=== PATIENT | male | born 1970 | race Caucasian/White ===

== ENCOUNTER 2017-12-29 04:12 | Emergency (ER) | payer SELFPAY, OTHER ==
[2017-12-29] MEDS: ETOMIDATE 20 MG/10 ML VIAL. IV ×2 (04:24→04:38)
[2017-12-29] MEDS: SUCCINYLCHOLINE 200 MG/10 ML VIAL. IV (04:25)
[2017-12-29] MEDS ORDERED: DIPHTH,PERTUSS(ACELL),TET TOX 0.5 ML DISP.SYRIN. VAX IM (04:27)
[2017-12-29] MEDS ORDERED: PROPOFOL 50 ML IV (04:27)
[2017-12-29] MEDS: IV NORMAL SALINE 1000ML BAG 1,000 ML IV ×2 (04:34→04:43)
[2017-12-29] MEDS: PROPOFOL 10 MG/ML (20ML) VIAL. IV (04:37)
[2017-12-29] MEDS ORDERED: ETOMIDATE 20 MG/10 ML VIAL. IV ×3 (04:39→05:12)
[2017-12-29] MEDS: ROCURONIUM 100 MG/10 ML VIAL. IV (04:44)
[2017-12-29] MEDS ORDERED: SUCCINYLCHOLINE 200 MG/10 ML VIAL. (05:09)
[2017-12-29] MEDS ORDERED: MIDAZOLAM HCL/PF 5 MG/5 ML VIAL. (05:09)
[2017-12-29] MEDS ORDERED: ROCURONIUM 50 MG/5 ML VIAL. (05:10)
== END 2017-12-29 04:44 | disposition short-term general hospital (02) ==
LOC: ER 04:12
DX: S11.91XA Laceration without foreign body of unspecified part of neck, initial encounter (principal); W18.02XA Striking against glass with subsequent fall, initial encounter; Y93.89 Activity, other specified; Y99.8 Other external cause status; Y92.89 Other specified places as the place of occurrence of the external cause
CPT/HCPCS: 31500; 43752; 96361; 96374; 99291-25; J0330; J2704; J7030

== ENCOUNTER 2017-12-31 10:37 | Emergency (ER) | payer SELFPAY ==
[2017-12-31 11:14] LABS: ADD MAN DIFF? NO
[2017-12-31 11:25] LABS: BASO % 1 % (0-3); EOS % 1 % (0-3); HEMATOCRIT 35.1 % (39.0-53.0); HEMOGLOBIN 11.6 g/dL (13.0-17.5); LYMPH % 25 % (24-48); MEAN CORPUSCULAR HEMOGLOBIN 30 pg (25-35); MEAN CORPUSCULAR HGB CONC 33 g/dL (31-37); MEAN CORPUSCULAR VOLUME 92 fL (79-100); MONO # 0.9 x10^3/uL (0.0-1.1); MONO % 11 % (0-9); NEUT # 5.2 x10^3uL (1.8-7.7); NEUT % 64 % (31-73); PLATELET COUNT 199 x10^3/uL (140-400); RED BLOOD COUNT 3.82 x10^6/uL (4.30-5.70); RED CELL DISTRIBUTION WIDTH 13.4 % (11.5-14.5); WHITE BLOOD COUNT 8.1 x10^3/uL (4.0-11.0)
[2017-12-31 11:27] LABS: ANION GAP -2 (6-14); BLOOD UREA NITROGEN 19 mg/dL (8-26); CALCIUM 7.9 mg/dL (8.5-10.1); CARBON DIOXIDE 35 mmol/L (21-32); CHLORIDE 106 mmol/L (98-107); CREATININE 0.9 mg/dL (0.7-1.3); GFR 91.3; GLUCOSE 90 mg/dL (70-99); POTASSIUM 3.6 mmol/L (3.5-5.1); SODIUM 139 mmol/L (136-145)
== END 2017-12-31 12:40 | disposition short-term general hospital (02) ==
LOC: ER 10:37
DX: R06.02 Shortness of breath (principal); R05 Cough
CPT/HCPCS: 36415; 71045; 80048; 85025; 99285-25

== ENCOUNTER → 2018-07-05 | Outpatient (CLI) | payer OTHER ==
[2017-12-31 12:18] VITALS: BP 89/53
--- NOTE | 2018-07-05 14:24 | KCIC ---
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 Comparison: None available. Findings/ impression: No evidence of metallic radiopaque density identified in the bilateral orbital region. Electronically signed by: Timo Peralta MD (07/05/2018 2:20 PM) [facility]
--- NOTE | 2018-07-05 15:24 | KCIC ---
Examination: MRI left shoulder without contrast HISTORY: History of left shoulder pain COMPARISON: None available TECHNIQUE: Multiplanar, multisequence MR imaging of the left shoulder were performed without contrast. FINDINGS: The long head of the biceps tendon is within the bicipital groove. The attachment of the long head of the biceps tendon to the superior labral anchor grossly appears intact. The attachment of the subscapularis tendon appears intact. There is a tiny 3 mm increased T2 signal identified in the undersurface fibers of the supraspinatus tendon likely a tiny undersurface partial tear. There is tendinosis of the supraspinous, infraspinatus tendon. There is questionable mild increased T2 signal identified in the infraspinatus muscle. Minimal amount of fluid identified in the subacromial bursa. Moderate degenerative changes acromioclavicular joint. The inferior aspect of the acromion abuts the superior aspect of the supraspinatus tendon. The muscle bulk grossly appears unremarkable Minimal fatty atrophic changes of the infraspinatus and teres minor muscles There is mild obscuration of fat in the rotator cuff interval. The visualized labrum grossly appears unremarkable Examination is limited due to motion artifact. IMPRESSION: 1. Tendinosis of the rotator cuff with a tiny 3 mm focus of increased T2 signal identified in the undersurface fibers of the supraspinatus tendon anteriorly could be a tiny focus of partial tear. Minimal fluid identified in the subacromial bursa probably bursitis. 2. Questionable mild increased T2 signal identified in the infraspinatus muscle could be artifactual or due to denervation edema. 3. There is downsloping of the acromion with the inferior aspect of the acromion abutting the superior aspect of the supraspinatus tendon. Correlate for impingement. 4. There is mild obscuration of fat in the rotator interval. Correlate for adhesive capsulitis. Electronically signed by: Timo Peralta MD (07/05/2018 3:20 PM) [facility]
== END | disposition home or self-care (01) ==
LOC: KCIC MRI 13:56
PROVIDERS: ATTEND Family Medicine
DX: Z01.00 Encounter for examination of eyes and vision without abnormal findings (principal); M25.512 Pain in left shoulder
CPT/HCPCS: 70030; 73221

== ENCOUNTER → 2019-01-11 | Day surgery (SDC) | payer OTHER ==
[~2019-01-11] VITALS: Ht 172.7 cm; Wt 123.4 kg
[~2019-01-11] MED LIST: BUPIVAC MPF-EPI 0.5%-1:200000 30 ML VIAL. ONE; BUPIVACAINE MPF 0.5% 30 ML VIAL. ONE; CHOL2000 PO; DESFLURANE 61 TO 120 MINUTES IH ONE; DEXAMETHASONE SOD PHOS 4 MG/ML VIAL ONE; EPINEPHrine VIAL 30 MG/30 ML VIAL ONE; ESMOLOL 100 MG/10 ML VIAL. IVP ONE; FLUT9.9S NS; GLYCOPYRROLATE 1 MG/5 ML VIAL. ONE; HYDROmorphone 2 MG/ML VIAL IV PRN; IBUP-1060 PO; IV RINGERS,LACTATED 1000ML 1,000 ML IV SCH; KETAMINE HCL IN NACL, ISO-OSM 50 MG/5 ML SYRINGE ONE; LIDOCAINE 2% PF 5 ML VIAL. ONE; LOSA100T14 PO; METH-37 PO; MIDAZOLAM HCL/PF 2 MG/2 ML VIAL. ONE; MORPHINE SULFATE 2 MG/ML VIAL. IV PRN; NEOSTIGMINE METHYLSULFATE 5 MG/5 ML SYRINGE. ONE; ONDANSETRON PF 4 MG/2 ML VIAL. IV PRN; ONDANSETRON PF 4 MG/2 ML VIAL. ONE; OXYC1TAB22 PO; PHENYLEPHRINE in 0.9% NACL PF 1 MG/10 ML SYRINGE. IV ONE; PROCHLORPERAZINE 10 MG/2 ML VIAL. IV PRN; PROPOFOL 20 ML IV ONE; ROCURONIUM 50 MG/5 ML VIAL. ONE; SUCCINYLCHOLINE 200 MG/10 ML VIAL. ONE; [UNRECOGNIZED DRUG - CODE] PO; ceFAZolin SODIUM 3 GM in IV DEXTROSE 5% 100ML 100 ML IV PRN; fentaNYL PF VIAL 100 MCG/2 ML VIAL IV PRN; fentaNYL PF VIAL 100 MCG/2 ML VIAL ONE
--- NOTE | 2019-01-11 09:02 | DISCH ---
DISCHARGE INSTRUCTIONS Condition on Discharge Condition on Discharge: Stable Activity After Discharge Activity Instructions for Disc: Activity as tolerated (sling for comfort only may use shoulder as tolerated and suggested immediate stretching advancing the strengthening as tolerated with physical therapy) Weight Bearing Status after Di: As tolerated Diet after Discharge Diet after Discharge: Regular Wound Incision Care Wound/Incision Care: Change dressing (move dressing in 2 days may then shower no soaking until sutures removed) Community/Resources/Services Services at Discharge: PT EVALUATE & TREAT Contacting the DR. after DC Call your doctor for: Concerns you may have Follow-Up Follow up with: Gera 1 week IRAIDA DONALD MD Jan 11, 2019 09:02
[2019-01-11 09:40] VITALS: BP 146/75
--- NOTE | 2019-01-11 09:45 | PDOC4 ---
Operative Note Operative Note Date of surgery: 01/11/2019 Preoperative diagnosis: Biceps labral pain and pathology Postoperative diagnosis: Superior labral fraying, intact biceps anchor severe synovitis impingement and partial-thickness undersurface rotator cuff tear Surgeon: Gera Assist: Mindy Anesthesia: Gen. plus scalene block Estimated blood loss: 5 mL Complications: None Operative indications: Please see my preoperative clinic note for detailed indications but note that he was having severe pain following a chiropractic manipulation and had clinical symptoms of bicipital irritation unresponsive to activity modification or other nonoperative measures. I had talked with him about the possibility of superior labral repair versus biceps tenodesis based on his initial findings and emphasized that any other intra-operative findings would be dealt with appropriately and restrictions certainly could be modified based on those findings. He is aware of the possibility of ongoing pain infection nerve or blood vessel damage medical or other anesthetic complications among others as well as the typically extended recovery period for shoulder arthroscopy all his questions were answered he wishes to proceed with surgical evaluation and treatment. Operative text: Patient was identified procedure verified patient placed in the supine position on the operating table. After adequate amounts of general anesthesia were administered plus a pre-existing scalene block, patient was placed in the decubitus position with beanbag for support and Stulberg positioner supplementary all bony prominences were well-padded and the right upper extremity was Shahid and under anesthesia found a full range of motion no instability and was then prepped and draped in standard sterile fashion placed in the arthroscopic arm hernandez with a total of 15 pounds of traction. After timeout was performed patient procedure identified and verified, a standard posterior portal was established anterior portal established using spinal needle localization and the shoulder joint was systematically examined. He was noted to have a type I SLAP tear with superior labral fraying which was debrided back to stable tissue. There was no peel back lesion noted although he did have exten sive synovitis throughout the joint capsule particularly in its superior aspect. Biceps tendon was stable in the groove subscapularis was noted to be intact he did have an undersurface partial tear of the supraspinatus which was trimmed back to stable tissue and from the appearance of the footprint noted to involve approximately 20% of the tendon insertion. I normal bare area of the humerus was noted and otherwise normal laxity of the capsule ligament structures. He did have some posterior inferior labral fraying which was debrided back to stable tissue using arthroscopic shaver glenohumeral joint was otherwise well maintained. Subacromial space was then entered bursa was cleared to allow visualization and based on the irritation on the bursal side of the rotator cuff I elected to perform a subacromial decompression eliminating the anterior acromial spur to a type I acromion the acromioclavicular joint was not violated as he appeared asymptomatic in that area rotator cuff although irritated at scuffed did not have any significant tearing or require repair. Bony fragments were evacuated with the arthroscopic shaver portals closed with nylon suture sterile dressings were applied patient was returned recovery room stable condition having tolerated procedure well IRAIDA DONALD MD Jan 11, 2019 09:45
== END ==
LOC: SURG 06:16
PROVIDERS: ATTEND Orthopaedic Surgery
DX: S43.431A Superior glenoid labrum lesion of right shoulder, initial encounter (principal); M19.011 Primary osteoarthritis, right shoulder; M75.41 Impingement syndrome of right shoulder; M75.111 Incomplete rotator cuff tear or rupture of right shoulder, not specified as traumatic; M75.21 Bicipital tendinitis, right shoulder; I10 Essential (primary) hypertension; E78.5 Hyperlipidemia, unspecified; F17.210 Nicotine dependence, cigarettes, uncomplicated; Z90.49 Acquired absence of other specified parts of digestive tract; Z98.890 Other specified postprocedural states; Z72.89 Other problems related to lifestyle; X58.XXXA Exposure to other specified factors, initial encounter; Y93.89 Activity, other specified; Y92.89 Other specified places as the place of occurrence of the external cause; Y99.8 Other external cause status
CPT/HCPCS: 29823; 29826; 29828; A7015; C1713; J0171; J0330; J1100; J2001; J2250; J2370; J2405; J2704; J2710; J3010; J3490

== ENCOUNTER → 2019-09-06 | Outpatient (CLI) | payer OTHER ==
[2019-01-11 09:40] VITALS: BP 146/75
[~2019-09-06] MED LIST changes: -BUPIVAC MPF-EPI 0.5%-1:200000 30 ML VIAL. ONE; -BUPIVACAINE MPF 0.5% 30 ML VIAL. ONE; -DESFLURANE 61 TO 120 MINUTES IH ONE; -DEXAMETHASONE SOD PHOS 4 MG/ML VIAL ONE; -EPINEPHrine VIAL 30 MG/30 ML VIAL ONE; -ESMOLOL 100 MG/10 ML VIAL. IVP ONE; -GLYCOPYRROLATE 1 MG/5 ML VIAL. ONE; -HYDROmorphone 2 MG/ML VIAL IV PRN; -IV RINGERS,LACTATED 1000ML 1,000 ML IV SCH; -KETAMINE HCL IN NACL, ISO-OSM 50 MG/5 ML SYRINGE ONE; -LIDOCAINE 2% PF 5 ML VIAL. ONE; -MIDAZOLAM HCL/PF 2 MG/2 ML VIAL. ONE; -MORPHINE SULFATE 2 MG/ML VIAL. IV PRN; -NEOSTIGMINE METHYLSULFATE 5 MG/5 ML SYRINGE. ONE; -ONDANSETRON PF 4 MG/2 ML VIAL. IV PRN; -ONDANSETRON PF 4 MG/2 ML VIAL. ONE; +OXYMETAZOLINE 0.05% NASAL SPRAY 30ML BOTTLE. NS ONE; -PHENYLEPHRINE in 0.9% NACL PF 1 MG/10 ML SYRINGE. IV ONE; -PROCHLORPERAZINE 10 MG/2 ML VIAL. IV PRN; -PROPOFOL 20 ML IV ONE; -ROCURONIUM 50 MG/5 ML VIAL. ONE; -SUCCINYLCHOLINE 200 MG/10 ML VIAL. ONE; -ceFAZolin SODIUM 3 GM in IV DEXTROSE 5% 100ML 100 ML IV PRN; -fentaNYL PF VIAL 100 MCG/2 ML VIAL IV PRN; -fentaNYL PF VIAL 100 MCG/2 ML VIAL ONE
--- NOTE | 2019-09-08 14:15 | SLEEP ---
DATE OF STUDY: 09/06/2019 SLEEP STUDY ATTENDING PHYSICIAN: Nilsa Darling MD The patient is 49 years old who weighs 297 pounds with a BMI of 42. The patient's Selma score was 10. The patient underwent split night study performed by [facility]. During the night study, the patient spent 418 minutes in bed and slept for 274 minutes with a sleep efficiency of 66%. Sleep latency was 27 minutes with a REM latency of 34 minutes, which was short. Sleep architecture showed increased stage 1 sleep, reduced stage 2 sleep, increased slow wave and normal REM sleep. During the initial diagnostic portion of the study, the patient slept for 73 minutes. During that time, there were 74 obstructive apneas, 2 mixed apneas, 1 central apnea and 55 hypopneas. The patient's AHI was 109 per hour. The patient's supine AHI was the same and REM AHI of 94 per hour. Nocturnal oximetry study revealed a mean oxygen saturation of 94% with the lowest of 66%, 24% of time oxygen saturation remained between 80% and 89% and 3% of time between 60% and 69%. PLMS were seen at index of 68 per hour and 4 per hour caused EEG arousals. EKG monitoring revealed mean heart rate of 84 beats per minute, no sustained arrhythmias observed. The patient met the criteria for CPAP initiation. It was started at 5 cm water and titrated up to 18 cm water. At the final pressure, the patient slept for 115 minutes. The patient's AHI was reduced to 2 per hour. The patient had lateral REM sleep. The patient's oxygen saturations remained above 88%. The patient used medium size full face mask. IMPRESSION: 1. Severe obstructive sleep apnea at an apnea-hypopnea index of 109 per hour. 2. Nocturnal hypoxia secondary to obstructive sleep apnea, but resolved with CPAP. 3. Severe periodic limb movements. RECOMMENDATIONS: 1. CPAP at 18 cm water completely eliminated the patient's sleep apnea and should be used on a nightly basis. 2. Follow up in 4-6 weeks to assess compliance with CPAP and to document clinical improvement. 3. Weight loss is strongly advised. 4. Avoid [employer] depressants. 5. Cautioned regarding driving until symptoms of sleep apnea resolve with the use of CPAP. 6. The patient should also be further evaluated for symptoms of restless legs during the day. LISBET KUMAR MD DR: RENE/daysi JOB#: [id number] / [id number] NILSA Gerardo MD
== END | disposition home or self-care (01) ==
LOC: RT 18:57
PROVIDERS: ATTEND Family Medicine
DX: G47.33 Obstructive sleep apnea (adult) (pediatric) (principal); G47.34 Idiopathic sleep related nonobstructive alveolar hypoventilation; G47.61 Periodic limb movement disorder
CPT/HCPCS: 95810